=== PATIENT | male | born 1975 | race African-American/Black ===

== ENCOUNTER 2021-07-18 14:39 | Emergency (ER) | payer OTHER, SELFPAY | END 2021-07-18 17:01 | disposition home or self-care (01) | LOC: ERS 14:39 | DX: M54.5 Low back pain (principal); F17.210 Nicotine dependence, cigarettes, uncomplicated; V49.9XXA Car occupant (driver) (passenger) injured in unspecified traffic accident, initial encounter | CPT/HCPCS: 99283 ==

== ENCOUNTER 2023-08-06 13:09 | Emergency (ER) | payer OTHER, SELFPAY | END 2023-08-06 14:02 | disposition home or self-care (01) | LOC: ERS 13:09 | DX: R09.81 Nasal congestion (principal); B34.9 Viral infection, unspecified; F17.210 Nicotine dependence, cigarettes, uncomplicated; Z20.822 Contact with and (suspected) exposure to COVID-19 | CPT/HCPCS: 87635; 99283 ==